=== PATIENT | female | born 1950 | race Caucasian/White ===

== ENCOUNTER 2017-06-08 07:50 | Day surgery (SDC) | payer MEDICARE ==
[~2017-06-08 07:50] MED LIST: Acetaminophen TAB* 325 MG PO PRN; Buffered Lidocaine 0.9% SYRIN* 5 ML/SYR SYRINGE INTRADERM ONE
[2017-06-08] MEDS ORDERED: Midazolam* 1 MG/ML 2 ML VIAL (2 MG) ONE ×2 (09:13→09:36)
[2017-06-08 10:04] VITALS: BP 143/62
[2017-06-08] MEDS ORDERED: Proparacaine 0.5% OPHTH.SOL* 15 ML BTL ONE (10:37)
[2017-06-08] MEDS ORDERED: Povidone Iodine 5% OPTH* 30 ML BTL ONE (10:37)
[2017-06-08] MEDS ORDERED: Cyclopentolate 1% OPTH.SOL* 2 ML BTL ONE (10:37)
[2017-06-08] MEDS ORDERED: Neomycin/Polymy/Dex OPTH.SUSP* MAXITROL 0.1% 5 ML ONE (10:37)
[2017-06-08] MEDS ORDERED: Phenylephrine 2.5% OPTH.SOL* 2 ML BTL ONE (10:37)
[2017-06-08] MEDS ORDERED: Ketorolac 0.5% OPHTH (NF) 0.5 % 5 ML BTL ONE (10:37)
[2017-06-08] MEDS ORDERED: Lidocaine 2% EPI 1:200000 MPF* 20 ML VIAL ONE (10:37)
[2017-06-08] MEDS ORDERED: Lidocaine 1% MPF* 2 ML VIAL ONE (10:37)
--- NOTE | 2017-06-08 11:31 | OP ---
DATE OF OPERATION: 06/08/2017 - [facility] DATE OF : 1950. SURGEON: Lobo Haines M.D. PREOPERATIVE DIAGNOSIS: Cataract left eye. POSTOPERATIVE DIAGNOSIS: Cataract left eye. OPERATIVE PROCEDURE: Extracapsular cataract extraction with intraocular lens implant left eye. DESCRIPTION OF PROCEDURE: The patient was brought to the operating room after being given 1/2% Alcaine with epinephrine drops in the preoperative area. The eye was prepped and draped in the usual sterile fashion. Sterile drape and eyelid speculum were placed. Again, topical 1/2% Alcaine with epinephrine was given. A paracentesis incision was made at the 3 o'clock position with the No.75 blade. Clear cornea incision 2.2 x 2.2-mm was created at the 6 o'clock position starting at the anterior limbus using the 2.2-mm keratome. The anterior chamber was irrigated with 0.4 mL of 1% non-preservative intracameral lidocaine and filled with DisCoVisc. A capsulorrhexis was completed using the cystotome and the Utrata forceps. Hydrodissection was performed with balanced salt solution. The lens nucleus was removed with the Phacoemulsification handpiece without incident. Cortex was removed with the irrigation-aspiration handpiece. The capsular bag was re-inflated using DisCoVisc and an [id number] 18.5 implant was inserted with the shooter. The irrigation-aspiration handpiece was used to remove all residual DisCoVisc. The eye was refilled with balanced salt solution and the wound checked and found to be watertight. Topical Maxitrol drops were given. [id number]/[facility] #: [id number] [facility]
== END 2017-06-08 10:17 | disposition home or self-care (01) ==
LOC: OREAST 07:50
PROVIDERS: ATTEND Specialist
DX: H25.813 Combined forms of age-related cataract, bilateral (principal); H40.053 Ocular hypertension, bilateral; H16.223 Keratoconjunctivitis sicca, not specified as Sjogren's, bilateral; F41.9 Anxiety disorder, unspecified; Z88.2 Allergy status to sulfonamides
CPT/HCPCS: A9270-GY; J2250; V2632

== ENCOUNTER 2017-06-15 06:17 | Day surgery (SDC) | payer MEDICARE ==
[2017-06-15] MEDS ORDERED: Midazolam* 1 MG/ML 2 ML VIAL (2 MG) ONE ×2 (07:16→07:48)
[2017-06-15 08:14] VITALS: BP 136/63
[2017-06-15] MEDS ORDERED: Proparacaine 0.5% OPHTH.SOL* 15 ML BTL ONE (11:53)
[2017-06-15] MEDS ORDERED: acetaZOLAMIDE TAB* 250 MG ONE (11:53)
[2017-06-15] MEDS ORDERED: Lidocaine 2% EPI 1:200000 MPF* 20 ML VIAL ONE (11:53)
[2017-06-15] MEDS ORDERED: Phenylephrine 2.5% OPTH.SOL* 2 ML BTL ONE (11:53)
[2017-06-15] MEDS ORDERED: Cyclopentolate 1% OPTH.SOL* 2 ML BTL ONE (11:53)
[2017-06-15] MEDS ORDERED: Neomycin/Polymy/Dex OPTH.SUSP* MAXITROL 0.1% 5 ML ONE (11:53)
[2017-06-15] MEDS ORDERED: Lidocaine 1% MPF* 2 ML VIAL ONE (11:53)
[2017-06-15] MEDS ORDERED: Ketorolac 0.5% OPHTH (NF) 0.5 % 5 ML BTL ONE (11:53)
[2017-06-15] MEDS ORDERED: Povidone Iodine 5% OPTH* 30 ML BTL ONE (11:53)
--- NOTE | 2017-06-15 13:54 | OP ---
DATE OF OPERATION: 06/15/17 - [facility] DATE OF : 1950. SURGEON: Lobo Haines M.D. PREOPERATIVE DIAGNOSIS: Cataract right eye. POSTOPERATIVE DIAGNOSIS: Cataract right eye. OPERATIVE PROCEDURE: Extracapsular cataract extraction with intraocular lens implant right eye. DESCRIPTION OF PROCEDURE: The patient was brought to the operating room after being given 1/2% Alcaine with epinephrine drops in the preoperative area. The eye was prepped and draped in the usual sterile fashion. Sterile drape and eyelid speculum were placed. Again, topical 1/2% Alcaine with epinephrine was given. A paracentesis incision was made at the 9 o'clock position with the No.75 blade. Clear cornea incision 2.2 x 2.2-mm was created at the 12 o'clock position starting at the anterior limbus using the 2.2-mm keratome. The anterior chamber was irrigated with 0.4 mL of 1% non-preservative intracameral lidocaine and filled with DisCoVisc. A capsulorrhexis was completed using the cystotome and the Utrata forceps. Hydrodissection was performed with balanced salt solution. The lens nucleus was removed with the Phacoemulsification handpiece without incident. Cortex was removed with the irrigation-aspiration handpiece. The capsular bag was re-inflated using DisCoVisc and an [id number] 18 implant was inserted with the shooter. The irrigation-aspiration handpiece was used to remove all residual DisCoVisc. The eye was refilled with balanced salt solution and the wound checked and found to be watertight. Topical Maxitrol drops were given. [id number]/[facility] #: [id number] [facility]
== END 2017-06-15 08:20 | disposition home or self-care (01) ==
LOC: OREAST 06:17
PROVIDERS: ATTEND Specialist
DX: H25.811 Combined forms of age-related cataract, right eye (principal); H40.053 Ocular hypertension, bilateral; H16.223 Keratoconjunctivitis sicca, not specified as Sjogren's, bilateral; Z87.891 Personal history of nicotine dependence; F41.9 Anxiety disorder, unspecified
CPT/HCPCS: A9270-GY; J2250; V2632

== ENCOUNTER 2017-08-27 18:26 | Emergency (ER) | payer MEDICARE ==
[2017-08-27] MEDS ORDERED: Lidocaine 1% INJ* 10 MG/ML 30 ML SDV INJ ONE (19:17)
[2017-08-27] MEDS ORDERED: Tetan/Diph/Pertus SYR(Tdap)* 0.5 ML SYR(BOOSTRIX) use SYR IM ONE (19:22)
[2017-08-27] MEDS ORDERED: Amoxicillin/Clavulanate TAB* 875 MG PO ONE (19:22)
--- NOTE | 2017-08-27 19:47 | ED ---
Bite Injury/Animal - HPI Summary HPI Summary: 67-year-old female presents with laceration to the left forearm today. She states that she was going [id number] to houses and she was knocking on the door when a dog came around the back. She states the dog came up to her and bit her left forearm. She has full range of motion of her forearm. No numbness or tingling. She is unsure whether last tetanus. dog is up to date on rabies. She denies any other injury. She is not diabetic. - History of Current Complaint Chief Complaint: EDAnimalBite Stated Complaint: DOG BITE Time Seen by Provider: 08/27/17 18:37 Pain Intensity: 4 - Allergies/Home Medications Allergies/Adverse Reactions: Allergies Allergy/AdvReac Type Severity Reaction Status Date / Time Sulfa (Sulfonamide Allergy Intermediate Rash Verified 06/15/17 06:33 Antibiotics) PERFUMES AND FRAGRANCES Allergy Severe COUGH, Uncoded 06/15/17 06:33 EYES BURNING, TUNNEL VISION PMH/Surg Hx/FS Hx/Imm Hx Endocrine/Hematology History: Denies: Hx Anticoagulant Therapy Cardiovascular History: Denies: Hx Myocardial Infarction GI History: Reports: Other GI Disorders - diverticulosis Musculoskeletal History: Reports: Hx Arthritis - mild, Hx Scoliosis Denies: Hx Osteoporosis Sensory History: Reports: Hx Cataracts - both, Hx Contacts or Glasses - glasses , Hx Hearing Aid - both ears Opthamlomology History: Reports: Hx Cataracts - both, Hx Contacts or Glasses - glasses Psychiatric History: Reports: Hx Anxiety, Hx Depression - MILD IN PAST Denies: Hx Eating Disorder, Hx of Violent Episodes Against Others - Surgical History Surgery Procedure, Year, and Place: COCCYXectomy REMOVED. tonsillectomy as a kid. appendectomy Hx Anesthesia Reactions: No - Immunization History Date of Tetanus Vaccine: unk Infectious Disease History: No Infectious Disease History: Denies: Traveled Outside the [place] in Last 30 Days - Family History Known Family History: Positive: Hypertension - Social History Alcohol Use: Weekly Substance Use Type: Reports: None Smoking Status (MU): Former Smoker Amount Used/How Often: smoked off and on 5 years 1/2 ppd Review of Systems Negative: Fever Negative: Chest Pain Negative: Shortness Of Breath Positive: Other - laceration left forearm All Other Systems Reviewed And Are Negative: Yes Physical Exam Triage Information Reviewed: Yes Vital Signs On Initial Exam: Initial Vitals Temp Pulse Resp BP Pulse Ox 99.4 F 101 16 139/84 97 08/27/17 18:27 08/27/17 18:27 08/27/17 18:27 08/27/17 18:27 08/27/17 18:27 Vital Signs Reviewed: Yes Appearance: Positive: Well-Appearing Skin: Positive: Warm, Dry, Other - 2cm by 1/2cm left forearm laceration, 2 1/ 2cm superfical laceratins Head/Face: Positive: Normal Head/Face Inspection Eyes: Positive: Normal, Conjunctiva Clear Respiratory/Lung Sounds: Positive: Clear to Auscultation, Breath Sounds Present Cardiovascular: Positive: Normal, RRR Musculoskeletal: Positive: Strength/ROM Intact - left arm, Other - good pulses, capillary refill<2 secs Neurological: Positive: Normal Psychiatric: Positive: Normal Procedures - Laceration/Wound Repair 1 Location: Other - left forearm Description: Linear Anesthesia: Local, 1.0% Length, Depth and Shape: 2cm by 1/2cm Irrigated w/ Saline (ccs): 300 Laceration/Wound Explored: no foreign body removed Closure: Single Layer Suture Type: Prolene Number of Sutures: 2 Diagnostics - Vital Signs Vital Signs Temp Pulse Resp BP Pulse Ox 08/27/17 18:27 99.4 F 101 16 139/84 97 - Laboratory Lab Statement: Any lab studies that have been ordered have been reviewed, and results considered in the medical decision making process. Bite Injury Course/Dx - Course Course Of Treatment: 67-year-old female presents with laceration to the left forearm today. She states that she was going smsh-fk-ayvu to houses and she was knocking on the door when a dog came around the back. She states the dog came up to her and bit her left forearm. She has full range of motion of her forearm. No numbness or tingling. She is unsure whether last tetanus. dog is up to date on rabies. She denies any other injury. She is not diabetic. on exam has 2 cm by half centimeter laceration of left forearm. has 2 1/2cm superficial lacerations near main laceration. cleaned area extensively and placed to sutures. Place on Augmentin. Warned of signs of infection and return to ED. Patient understands agrees plan. - Diagnoses Differential Diagnosis/HQI/PQRI: Positive: Crush Injury, Laceration, Puncture Provider Diagnosis: Dog bite Discharge - Sign-Out/Discharge Documenting (check all that apply): Discharge/Admit/Transfer - Discharge Plan Condition: Good Disposition: HOME Prescriptions: Amoxicillin/Clavulanate TAB* [Augmentin TAB 875*] 875 mg PO BID #9 tab Patient Education Materials: Animal Bite (ED) Referrals: Richar Velasco, COLLECTIONS AND ARCHIVES DIRECTOR [Primary Care Provider] - Additional Instructions: Wash area with soap and water twice a day Place Neosporin on area Take augmentin twice a day for 5 days Return to ED if develop any sign of infection such as spreading redness, pus, or fever, or any new or worsening symptoms - Billing Disposition and Condition Condition: GOOD Disposition: Home
[2017-08-27 20:22] VITALS: BP 156/80
== END 2017-08-27 20:21 | disposition home or self-care (01) ==
LOC: ED 18:26
DX: S51.852A Open bite of left forearm, initial encounter (principal); W54.0XXA Bitten by dog, initial encounter; Y92.9 Unspecified place or not applicable; Z23 Encounter for immunization; Z87.891 Personal history of nicotine dependence; Z88.2 Allergy status to sulfonamides
CPT/HCPCS: 12001; 90471; 90715; 99282; A9270-GY

== ENCOUNTER 2018-08-01 19:59 | Emergency (ER) | payer MEDICARE ==
[2018-08-01] MEDS ORDERED: Ketorolac INJ* 30 MG/ML 1 ML VIAL IV PUSH ONE (20:41)
[2018-08-01] MEDS ORDERED: Metoclopramide IV* 5 MG/ML 2 ML VIAL IV ONE (20:41)
[2018-08-01] MEDS ORDERED: diPHENhydraMINE IV* 50 MG/ML 1 ml VIAL (BENADRYL) IV ONE (20:41)
[2018-08-01] MEDS ORDERED: NS 0.9% 1000 ML** 1,000 ML IV ONE (20:41)
--- OUTSIDE RECORDS SUMMARY | 2018-08-01 20:53 | XMS REPORT | Continuity of Care Document ---
:1950 External Reference #:[id number] Author Name Lobo Haines M.D. Address [address] [place] [address] Care Team Providers Name Role Phone Richar Velasco Primary Care Physician Unavailable Payers Date Identification Numbers Payment Provider Subscriber Policy Number: [id number] Medicare - [facility] Mona Gonzales PayID: [id number] [address] [place] [address] Policy Number: [id number] [facility] Mona Gonzales PayID: [id number] [address] [place] [address] Advance Directives Description No Information Available Problems Active Problems Provider Date H/O: multiple allergies Lobo Haines M.D. Onset: 07/15/2014 Note: ALLERGIC TO CHEMICALS, SUCH PURFUMES AND DETERGENTS Combined form of senile cataract Lobo Haines M.D. Onset: 04/11/2015 Keratoconjunctivitis sicca, not specified Lobo Haines M.D. Onset: 2015 as Sjogren's Blepharitis Kevin Sousa M.D. Onset: 07/08/2016 Ocular hypertension Lobo Haines M.D. Onset: 04/14/2017 Viral conjunctivitis Kevin Sousa M.D. Onset: 06/02/2017 Presence of intraocular lens Ngozi Godfrey O.D. Onset: 06/08/2017 Pain in eye Ngozi Godfrey O.D. Onset: 06/20/2017 Tear film insufficiency Ngozi Godfrey O.D. Onset: 06/20/2017 Superficial punctate keratitis Ashley Rodriguez O.D. Onset: 06/29/2017 Squamous blepharitis Ashley Rodriguez O.D. Onset: 06/29/2017 Angular blepharoconjunctivitis Ngozi Godfrey O.D. Onset: 09/30/2017 Chalazion Ngozi Godfrey O.D. Onset: 09/30/2017 Vitreous degeneration Kevin Sousa M.D. Onset: 01/24/2018 Migraine with typical aura Kevin Sousa M.D. Onset: 01/24/2018 Hypercholesterolemia Lobo Haines M.D. Onset: 07/24/2018 Retinal drusen Lobo Haines M.D. 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 ETOH Use Denies alcohol use Recreational Drug Use Never Used Drugs Tobacco Use Start: Unknown End: Unknown Patient is a former smoker Smoking Status Reviewed: 07/24/18 Patient is a former smoker Allergies, Adverse Reactions, Alerts Active Allergies Reaction Severity Comments Date Sulfa Antibiotics Contact dermatitis 07/15/2014 Medications Active Medications SIG Qnty Indications Ordering Provider Date Erythromycin Apply to all four 1Tube H01.021 Lobo Haines, 07/24/2018 5mg/GM lids at bedtime M.DNilsa Ointment for 3 weeks Ocusoft Lid Scrub as needed Lobo Haines, 07/23/2018 Original Gregory Liquid Refresh Optive Leland-3 [id number] Ashley Rodriguez, 07/04/2017 O.D. 0.5-1-0.5% Solution Jose Mag Zinc +D3 1 tablet 1 time Unknown +D3 per day Tablets Centrum Silver 1 tablet per day Unknown Tablets Atorvastatin Calcium take 1 tablet by Unknown 20mg mouth at bedtime Tablets Ranitidine HCL take 1 tablet by Unknown 150mg mouth twice a day Tablets if needed Fluticasone Propionate Unknown 50mcg/Act Suspension Eye Wash as Needed Unknown Solution Xanax as needed Unknown 0.25mg Tablets Fish Oil 1 by mouth every Unknown 1000mg Capsules day History Medications Erythromycin apply thin 1Tube H10.523 Ngozi Vogel 09/30/2017 - 5mg/GM strip to all [place], O.D. 01/23/2018 Ointment four eyelid margins x every night for 2 weeks FML Forte 1 drop in both 15ml H04.123 Lobo Haines, 07/15/2017 - 0.25% eyes twice a M.D. 07/20/2017 Suspension day Xiidra use 1 drop 180units H04.123 Ashley Rodriguez, 07/06/2017 - 5% Solution twice a day O.D. 07/14/2017 both eyes Ciprofloxacin HCL instill one 10units Ngozi Vogel 06/20/2017 - 0.3% drop in the [place], O.D. 06/19/2017 Solution right eye three times a day, start the day before surgery Combigan 1 drop right 15ml Lobo Haines, 06/08/2017 - 0.2-0.5% eye twice a M.D. 06/19/2017 Solution day Prednisolone Acetate 1 drop left 15units Lobo Haines, 05/20/2017 - 1% eye 3 times a M.D. 07/14/2017 Suspension day Ketorolac use one drop 10ml Lobo Haines, 05/20/2017 - Tromethamine in the left M.D. 06/28/2017 0.5% eye twice a Solution day,1 drop three times day, start the day before surgery Ciprofloxacin HCL instill one 10ml Lobo Haines, 05/20/2017 - 0.3% drop in the M.D. 06/19/2017 Solution right eye three times a day, start the day before surgery Neomycin/Polymyxin/De apply one drop 10ml H01.001 Kevin 07/08/2016 - xamethasone to each eye, Gregory Sousa 10/10/2016 0.1% Two times a Suspension day for 2 weeks Systane 1 drop left Lobo Haines, 10/09/2015 - 0.4-0.3% eye every 2 M.D. 06/21/2017 Solution hours Multi-Day Vitamins Unknown - 04/13/2017 Tablets Famotidine Cannariato, - 20mg Tablets Rosi M.D. 04/13/2017 Calcium 1200 Unknown - 05/19/2017 [id number]-Yoze Chewtabs Citracal +D3 Unknown - 09/07/2017 622-639-327ys-mg-Unit Chewtabs Multi For Her Unknown - Capsules 05/31/2018 Fluticasone Unknown - Propionate 07/14/2017 50mcg/Act Suspension Soothe XP 1 drop both Unknown - Solution eyes every day 07/14/2017 as needed Refresh Celluvisc Gel as needed up Lobo Haines, - to every 20-30 M.D. 05/10/2018 minutes Similasan Dry Eye as needed - 2 Unknown - Relief times daily 07/20/2017 Solution Tylenol 2 at bedtime Unknown - 325mg Capsules 07/05/2018 Azithromycin take 1 tablet Unknown - 500mg by mouth once 02/01/2018 Tablets daily for 5 days Tylenol Sinus Severe prn Unknown - 05/09/2018 5-325-200mg Tablets Immunizations Description No Information Available Vital Signs Description No Information Available Results Description No Information Available Procedures Date Code Description Status 02/14/2018 80013 Est Patient Intermediate Exam Completed 01/24/2018 99991 Est Patient Comprehensive Exam Completed 09/30/2017 04061 Est Patient Intermediate Exam Completed 07/21/2017 14429 Scanning Computerized Ophthalmic Diagnostic Imag Posterior Completed Seg On 07/21/2017 23657 Visual Field Exam Extended Completed 07/21/2017 510 Eye Scrubs 30 Count Completed 07/05/2017 94508 Contact Lens For Treatment Of Ocular Surface Disease Completed 06/15/2017 18735 Extracapsular Cataract Extraction W/Intraocular Lens Completed 06/08/2017 64071 Extracapsular Cataract Extraction W/Intraocular Lens Completed 05/20/2017 11785 Ophthalmic Biometry Completed 05/20/2017 32842 Ophthalmic Biometry Completed 04/14/2017 81920 Est Patient Comprehensive Exam Completed 10/11/2016 22869 Est Patient Comprehensive Exam Completed 07/08/2016 02414 Est Patient Comprehensive Exam Completed 10/10/2015 81274 Est Patient Intermediate Exam Completed 04/11/2015 27933 Est Patient Intermediate Exam Completed 03/07/2015 71667 Patient No Show For Appt Completed 07/15/2014 36243 Determination Of Refractive State Completed 07/15/2014 55553 Est Patient Comprehensive Exam Completed 12/24/2013 78987 Determination Of Refractive State Completed 12/24/2013 17759 Est Patient Intermediate Exam Completed 11/08/2013 64685 Est Patient Comprehensive Exam Completed 10/22/2013 94393 Patient No Show For Appt Completed 10/19/2012 97947 Est Patient Intermediate Exam Completed 06/05/2012 36654 Est Patient Comprehensive Exam Completed 06/05/2012 71067 Determination Of Refractive State Completed 05/08/2012 523 Goggles Completed 05/02/2012 24780 Est Patient Comprehensive Exam Completed 05/02/2012 605 Cleaning Cloth Completed 05/02/2012 603 Eyeglass/CL Case Completed 05/13/2011 27896 Est Patient Intermediate Exam Completed 05/03/2011 83250 New Patient Comprehensive Exam Completed 05/03/2011 47952 Pachymetry Completed Encounters Type Date Location Provider Dx Diagnosis Office Visit 07/21/2017 Lobo Ladd, H40.053 Ocular 11:15a , susan Jenkins hypertension, bilateral H04.123 Dry eye syndrome of bilateral lacrimal glands Z96.1 Presence of intraocular lens Office Visit 07/07/2017 7:15p Lobo Rodriguez, H16.142 Punctate MD Zaki, susan O.D. keratitis, left eye H04.123 Dry eye syndrome of bilateral lacrimal glands Office Visit 06/29/2017 9:45a Lobo Rodriguez, H16.142 Justin Haines MD, susan O.D. keratitis, left eye H01.021 Squamous blepharitis right upper eyelid H01.024 Squamous blepharitis left upper eyelid Office Visit 06/02/2017 Lobo Brown B30.9 Viral conjunctivitis, 11:15a MD Zaki, Gregory Sousa unspecified pc Office Visit 05/20/2017 Lobo Vogel H25.812 Combined forms of 11:00a MD Zaki, Gregory Haines age-related cataract, pc left eye H25.811 Combined forms of age-related cataract, right eye H40.053 Ocular hypertension, bilateral H16.223 Keratoconjunct sicca, not specified as Sjogren's, bilateral Office Visit 05/08/2012 1:30p Richar Ladd 692.9 Dermatitis Unspec , susan Leung M.D. Cause Due To Spec Agents Other Plan of Treatment 07/24/2018 - Lobo Haines M.D.H40.053 Ocular hypertension, bilateralComments :Smoking can increase the risk of developing or worsening any eye related disease, as well as affect your overall health. If you are a smoker, we strongly recommend that you quit.If you are not a smoker, we strongly recommend that you do not start. You have Ocular Hypertension in both eyes. This means that your eye pressure is higher than average, but you have not been diagnosed with Glaucoma.H01.021 Squamous blepharitis right upper eyelidNew Medication: Erythromycin 5 mg/GM - Apply to all four lids at bedtime for 3 weeksComments: Dr. Haines has diagnosed you with Blepharitis. This is common condition and can be managed with a few simple steps each day. -Use a hot compress 1-2 times per day, 10-15 minutes at a time, to help melt down the oils in your eyelids that have hardened. Each time you blink, the glands in the lids are supposed to release a protective oil layer over your tears to help them from evaporating. It is common with Blepharitis that the natural bacteria produced overgrows and hardens in the glands, which does not allow a protective oil layer to coat your tears.-Use artificial tear drops frequently throughout the day. Because the tear film is evaporating quicker than normal, you will need to supplement with tear drops to keep the ocular surface comfortable. -Use a lid scrub to remove debris from the lashes. [employer] is a brand we recommend to use.-Examine your environment. The weather for the area we live in often goes from one extreme to the other, forcing us to use air conditioners and heaters often. This can dry the air in the house out, so sometimes using a humidifier can help your ocular surface as well.H01.022 Squamous blepharitis right lower yvdmauG36.024 Squamous blepharitis left upper oimgkgN08.025 Squamous blepharitis left lower hxsvwgC06.1 Presence of intraocular lensComments:The artificial lens implants in both eyes appear to be stable at this time.H35.363 Drusen (degenerative) of macula, bilateralFollow up:1 Year Follow Up Photos You can expect to have your eyes dilated at your next visit. If Dr. Haines orders any additional testing, it may require extra time. We recommend that you bring sunglasses, as dilation drops often make you light sensitive until they wear off. We always recommend you bring someone to drive you home if you are uncomfortable driving with your eyes dilated. If you have any questions before your next visit, feel free to call our office at .
--- OUTSIDE RECORDS SUMMARY | 2018-08-01 20:53 | XMS REPORT | Continuity of Care Document ---
:1950 External Reference #:[id number] Author Name RobTracie sandy Care Team Providers Name Role Phone Ny Wagoner MD Primary Care Physician Unavailable Payers Date Identification Numbers Payment Provider Subscriber Policy Number: [id number] Medicare Shannon Garcia PayID: [id number] [address] [facility] [address] Expires: 2017 Policy Number: [id number] Medicare Shannon Serranoff PayID: [id number] [address] [facility] [address] Policy Number: [id number] [facility] Shannon Garcia PayID: [id number] [address] [place] [address] Expires: 2016 Policy Number: [id number] [facility] Shannon Garcia PayID: [id number] [address] [place] [address] Advance Directives Type Date Description Status Comment Other Directive 12/24/2016 Health Care Proxy Current and Verified Problems Active Problems Provider Date Anxiety state Richar Velasco NP Onset: 06/02/2016 Sprain of ankle Lele Renee MD Onset: 03/30/2017 Disorder of joint of ankle and/or foot Lele Renee MD Onset: 03/30/2017 Family History Date Family Member(s) Observation Comments Father Lung Cancer at 59 Father Heart Disease Mother Colon Cancer at 100 Siblings 3 1 lung cancer 1 current lung cancer-remission 1 obesity Social History Type Date Description Comments Sex Unknown Marital Status Lives With Spouse Occupation [employer] Occupation Retired ETOH Use Currently consumes 5 drinks/week alcohol Tobacco Use Start: Unknown End: Patient is a former 10 cigarettes daily Unknown smoker for 5 yrs, then for a few months during divorce. Quit in her 40s Smoking Status Reviewed: 07/12/18 Patient is a former 10 cigarettes daily smoker for 5 yrs, then for a few months during divorce. Quit in her 40s Exercise Exercises sporadically Type/Frequency Allergies, Adverse Reactions, Alerts Active Allergies Reaction Severity Comments Date Sulfa Antibiotics Urticaria 05/31/2016 Medications Active Medications SIG Qnty Indications Ordering Provider Date Ranitidine HCL take 1 tablet by 60tabs K21.9 Richar Velasco NP 07/12/2018 150mg mouth twice a Tablets day if needed Fluticasone 2 sprays each 16units J01.90 Richar Velasco NP 12/05/2017 Propionate nostril qd. 50mcg/Act Suspension Azelastine HCL 1 spray in each 30ml Steffen DNilsa 10/21/2017 (Nasal) nostril 2x/day. Gregory De,FACP 0.1% Solution Alprazolam one by mouth 30tabs F41.9 Richar Velasco NP 05/31/2016 0.25mg once daily as Tablets needed Citrucel 1 by mouth every Unknown 500mg Tablets day Multi For Her once a day Unknown Tablets History Medications Levofloxacin one by mouth 10tabs J01.90 Richar Velasco NP 12/05/2017 - 500mg daily for 10 12/15/2017 Tablets days Flagyl Take one tablet 21tabs R10.32 Laurel Rosas, 11/25/2017 - 500mg Tablets by mouth three M.D. 12/05/2017 times daily for 7 days. Hydroxyzine Pamoate 1-2 caps QHS as 60caps G47.00 Richar Velasco NP 2017 - needed. 10/21/2017 25mg Capsules Tylenol Extra 2 by mouth as Ganesh Phelps, 11/29/2016 - Strength needed M.D. 03/29/2017 500mg Tablets Fluticasone 2 sprays each 16gm R05 Kaushik Doe, 10/29/2016 - Propionate nostril qd. M.D. 03/29/2017 50mcg/Act Suspension Naprosyn Unknown - 375mg Tablets 03/29/2017 Amoxicillin/Clavulana 1 by mouth Unknown - te Potassium twice a day for 09/19/2017 875-125mg 5 days Tablets Benzonatate one by mouth Unknown - 200mg three times 10/25/2017 Capsules daily for 7 days Amoxicillin/Clavulana 1 by mouth Unknown - te Potassium twice a day 02/21/2018 875-125mg Tablets Xyzal 1 by mouth Unknown - 5mg Tablets every day 04/26/2018 Medications Administered in Office Medication SIG Qnty Indications Ordering Provider Date Depomedrol 40MG Emiliana Cifuentes M.D. 04/19/2018 Injection Depomedrol 40MG Emiliana Cifuentes M.D. 12/15/2017 Injection Immunizations CPT Code Status Date Vaccine Reaction Lot # 40869 Given 07/12/2018 Pneumonia Vaccine No reaction seen - no [id number] immediate side effects - patient tolerated well 10247 Given 12/22/2016 Pneumococcal Conjugate [id number] Vaccine 13 Valent For Intramuscular Use 16633 Given 06/20/2015 Tdap - Tetanus/Diptheria/Acellular Pertussis Vital Signs Date Vital Result Comment 07/12/2018 11:09am Height 67 inches 5'7" Weight 181.00 lb Heart Rate 64 /min BP Systolic 140 mmHg BP Diastolic 80 mmHg Body Temperature 97.6 F O2 % BldC Oximetry 98 % BMI (Body Mass Index) 28.3 kg/m2 06/22/2018 2:16pm Height 67.75 inches 5'7.75" Weight 179.12 lb Heart Rate 64 /min BP Systolic 136 mmHg BP Diastolic 75 mmHg Body Temperature 97.9 F O2 % BldC Oximetry 98 % BMI (Body Mass Index) 27.4 kg/m2 05/31/2018 10:12am Height 67.75 inches 5'7.75" Weight 178.00 lb BP Systolic 120 mmHg BP Diastolic 74 mmHg Pain Level 1 BMI (Body Mass Index) 27.3 kg/m2 04/27/2018 1:46pm Height 67.75 inches 5'7.75" Weight 178.75 lb Heart Rate 56 /min BP Systolic 131 mmHg BP Diastolic 66 mmHg Body Temperature 98.0 F O2 % BldC Oximetry 96 % BMI (Body Mass Index) 27.4 kg/m2 04/19/2018 9:31am Height 67.75 inches 5'7.75" Heart Rate 78 /min BP Systolic 128 mmHg BP Diastolic 80 mmHg Respiratory Rate 18 /min Body Temperature 97.9 F Pain Level 8 02/22/2018 9:12am Height 67.75 inches 5'7.75" Weight 180.00 lb BP Systolic 136 mmHg BP Diastolic 82 mmHg Respiratory Rate 16 /min Body Temperature 98.0 F Pain Level 3 BMI (Body Mass Index) 27.6 kg/m2 01/25/2018 10:18am Height 67.75 inches 5'7.75" Weight 180.00 lb Heart Rate 73 /min BP Systolic 127 mmHg BP Diastolic 79 mmHg Respiratory Rate 16 /min BMI (Body Mass Index) 27.6 kg/m2 01/24/2018 8:57am Height 67.5 inches 5'7.50" Weight 179.25 lb Heart Rate 69 /min BP Systolic 136 mmHg BP Diastolic 76 mmHg Body Temperature 99.1 F O2 % BldC Oximetry 95 % BMI (Body Mass Index) 27.7 kg/m2 12/15/2017 2:35pm Height 67.5 inches 5'7.50" Weight 177.00 lb Heart Rate 68 /min BP Systolic 124 mmHg BP Diastolic 70 mmHg Respiratory Rate 12 /min Body Temperature 98.1 F Pain Level 7 BMI (Body Mass Index) 27.3 kg/m2 12/05/2017 4:33pm Height 67.25 inches 5'7.25" Weight 178.00 lb Heart Rate 63 /min BP Systolic 122 mmHg BP Diastolic 78 mmHg Body Temperature 98.6 F O2 % BldC Oximetry 96 % BMI (Body Mass Index) 27.7 kg/m2 11/25/2017 10:19am Height 67.25 inches 5'7.25" Weight 176.00 lb Heart Rate 62 /min BP Systolic Sitting 110 mmHg BP Diastolic Sitting 60 mmHg Respiratory Rate 18 /min O2 % BldC Oximetry 96 % on Ra BMI (Body Mass Index) 27.4 kg/m2 11/16/2017 10:31am Height 67.25 inches 5'7.25" Weight 178.50 lb Heart Rate 66 /min BP Systolic 122 mmHg BP Diastolic 78 mmHg Respiratory Rate 16 /min Body Temperature 98.6 F Pain Level 6 BMI (Body Mass Index) 27.7 kg/m2 10/21/2017 3:03pm Height 67.25 inches 5'7.25" Weight 176.00 lb Heart Rate 81 /min BP Systolic 132 mmHg BP Diastolic 70 mmHg Body Temperature 97.9 F O2 % BldC Oximetry 96 % BMI (Body Mass Index) 27.4 kg/m2 10/03/2017 2:19pm Height 67.25 inches 5'7.25" Weight 180.00 lb Heart Rate 74 /min BP Systolic 118 mmHg BP Diastolic 70 mmHg Body Temperature 97.4 F O2 % BldC Oximetry 95 % BMI (Body Mass Index) 28.0 kg/m2 09/19/2017 2:07pm Height 67.25 inches 5'7.25" Weight 178.50 lb Heart Rate 76 /min BP Systolic 118 mmHg BP Diastolic 66 mmHg O2 % BldC Oximetry 98 % BMI (Body Mass Index) 27.7 kg/m2 09/05/2017 8:30am Weight 179.00 lb Heart Rate 74 /min BP Systolic Sitting 134 mmHg BP Diastolic Sitting 79 mmHg O2 % BldC Oximetry 98 % 09/01/2017 3:15pm Height 67.5 inches 5'7.50" Weight 177.25 lb Heart Rate 65 /min BP Systolic 131 mmHg BP Diastolic 67 mmHg Body Temperature 98.9 F O2 % BldC Oximetry 99 % BMI (Body Mass Index) 27.3 kg/m2 05/18/2017 10:17am Weight 178.00 lb Heart Rate 56 /min BP Systolic Sitting 125 mmHg BP Diastolic Sitting 80 mmHg Body Temperature 97.9 F O2 % BldC Oximetry 98 % 04/26/2017 1:37pm Height 68 inches 5'8" Weight 176.00 lb BP Systolic 126 mmHg BP Diastolic 76 mmHg Respiratory Rate 16 /min Body Temperature 97.2 F Pain Level 0 BMI (Body Mass Index) 26.8 kg/m2 03/30/2017 1:39pm Height 68 inches 5'8" Weight 176.00 lb Heart Rate 76 /min BP Systolic 138 mmHg BP Diastolic 84 mmHg Pain Level 3 BMI (Body Mass Index) 26.8 kg/m2 02/02/2017 2:07pm Height 68 inches 5'8" Weight 178.00 lb Heart Rate 68 /min BP Systolic Sitting 146 mmHg BP Diastolic Sitting 88 mmHg Body Temperature 98.4 F O2 % BldC Oximetry 97 % BMI (Body Mass Index) 27.1 kg/m2 01/12/2017 8:37am Height 68 inches 5'8" Weight 173.25 lb Heart Rate 69 /min BP Systolic 120 mmHg BP Diastolic 80 mmHg Body Temperature 97.4 F Pain Level 97 BMI (Body Mass Index) 26.3 kg/m2 12/22/2016 11:17am Height 68 inches 5'8" Weight 173.00 lb Heart Rate 65 /min BP Systolic Sitting 138 mmHg BP Diastolic Sitting 82 mmHg Body Temperature 98.5 F O2 % BldC Oximetry 98 % BMI (Body Mass Index) 26.3 kg/m2 11/29/2016 4:37pm Height 68 inches 5'8" Weight 179.38 lb Heart Rate 67 /min BP Systolic Sitting 122 mmHg BP Diastolic Sitting 86 mmHg Body Temperature 99.2 F O2 % BldC Oximetry 97 % BMI (Body Mass Index) 27.3 kg/m2 10/29/2016 4:24pm Height 68 inches 5'8" Weight 179.00 lb Heart Rate 75 /min BP Systolic 130 mmHg BP Diastolic 78 mmHg Body Temperature 98.4 F O2 % BldC Oximetry 99 % BMI (Body Mass Index) 27.2 kg/m2 06/07/2016 8:37am Weight 177.00 lb with shoes Heart Rate 69 /min BP Systolic 130 mmHg BP Diastolic 80 mmHg O2 % BldC Oximetry 98 % 05/31/2016 1:02pm Height 67 inches 5'7" Weight 174.00 lb Heart Rate 66 /min BP Systolic 110 mmHg BP Diastolic 80 mmHg O2 % BldC Oximetry 99 % BMI (Body Mass Index) 27.2 kg/m2 Results Test Date Facility Test Result H/L Range Note Lipid Profile 07/12/2018 [facility] Triglycerides 213 mg/dL 1 (Trig/Chol/HDL) [address] [place] [address] [phone] Cholesterol 270 mg/dL 2 HDL Cholesterol 65.7 mg/dL 3 LDL Cholesterol 162 mg/dL 4 Laboratory test 07/12/2018 [facility] Glucose 96 mg/dL N 70- [address] [place] [address] [phone] CBC Auto Diff 10/22/2017 [facility] White Blood 4.3 10^3/uL N 3.5-10.[address] [place] [address] [phone] Red Blood Count 4.48 10^6/uL N 4.00-5.40 Hemoglobin 13.3 g/dL N 12.0-16.0 Hematocrit 40 % N 35-47 Mean Corpuscular Volume 90 fL N 80-97 Mean Corpuscular Hemoglobin 30 pg N 27-31 Mean Corpuscular HGB Conc 33 g/dL N 31-36 Red Cell Distribution Width 14 % N 10.5-15 Platelet Count 285 10^3/uL N 150-450 Mean Platelet Volume 8.2 um3 N 7.4-10.4 Abs Neutrophils 1.9 10^3/uL N 1.5-7.7 Abs Lymphocytes 1.7 10^3/uL N 1.0-4.8 Abs Monocytes 0.3 10^3/uL N 0-0.8 Abs Eosinophils 0.3 10^3/uL N 0-0.6 Abs Basophils 0.1 10^3/uL N 0-0.2 Abs Nucleated RBC 0 10^3/uL Granulocyte % 45.1 % N 38-83 Lymphocyte % 39.1 % N 25-47 Monocyte % 7.8 % High 0-7 Eosinophil % 6.7 % High 0-6 Basophil % 1.3 % N 0-2 Nucleated Red Blood Cells % 0.1 Comp Metabolic Panel 10/22/2017 [facility] Sodium 139 mmol/L N 135-145 [address] [place] [address] [phone] Potassium 4.1 mmol/L N 3.5-5.0 Chloride 104 mmol/L N 101-111 Co2 Carbon Dioxide 28 mmol/L N 22-32 Anion Gap 7 mmol/L N 2-11 Glucose 110 mg/dL High 70-100 Blood Urea Nitrogen 12 mg/dL N 6-24 Creatinine 0.95 mg/dL N 0.51-0.95 BUN/Creatinine Ratio 12.6 N 8-20 Calcium 10.3 mg/dL N 8.6-10.3 Total Protein 6.8 g/dL N 6.4-8.9 Albumin 4.5 g/dL N 3.2-5.2 Globulin 2.3 g/dL N 2-4 Albumin/Globulin Ratio 2.0 N 1-3 Total Bilirubin 0.70 mg/dL N 0.2-1.0 Alkaline Phosphatase 76 U/L N 34-104 Alt 31 U/L N 7-52 Ast 29 U/L N 13-39 Egfr Non- 58.7 >60 Egfr 71.0 >60 6 Laboratory test 10/22/2017 [facility] C Reactive 9.17 mg/L High <8.[address] [place] [address] [phone] Ua Routine 10/21/2017 [facility] Ua Specific [address] Ua PH 8 Ua Color yellow Ua Appera clear Ua WBC trace Ua Protein negative Ua Glucose negative Ua Ketones negative Ua Bilirubin negative Ua Urobilinogen negative Ua Nitrite negative Ua Occult Blood trace Urine Culture And 10/21/2017 [facility] Urine Culture SEE RESULT [address] [place] [address] [phone] Wound Culture/Sensi 09/01/2017 [facility] Wound/Misc SEE RESULT [address] Culture[place] [address] [phone] Lipid Profile 12/23/2016 [facility] Triglycerides 150 mg/dL N 9 (Trig/Chol/HDL) [address] [place] [address] [phone] Cholesterol 247 mg/dL N 10 HDL Cholesterol 53.0 mg/dL N 11 LDL Cholesterol 164 mg/dL N 12 Basic Metabolic Panel 12/23/2016 [facility] Sodium 138 mmol/L N 133-[address] [place] [address] [phone] Potassium 4.3 mmol/L N 3.5-5.0 Chloride 106 mmol/L N 101-111 Co2 Carbon Dioxide 25 mmol/L N 22-32 Anion Gap 7 mmol/L N 2-11 Glucose 95 mg/dL N 70-100 Blood Urea Nitrogen 16 mg/dL N 6-24 Creatinine 0.88 mg/dL N 0.51-0.95 BUN/Creatinine Ratio 18.2 N 8-20 Calcium 10.0 mg/dL N 8.6-10.3 Egfr Non- 64.3 N >60 Egfr 82.7 N >60 13 Laboratory test 12/23/2016 [facility] Hepatitis C Nonreactive N Nonreactive finding [address] [place] [address] [phone] Urine Culture 12/23/2016 [facility] Urine SEE RESULT [address] Culture BELOW Sensitivities [place], [place] [address] [phone] Urinalysis 12/23/2016 [facility] Urine Color Yellow N Profile [address] [place] [address] [phone] Urine Appearance Cloudy N Urine Specific [place] 1.015 N 1.010-1.030 Urine pH 5.0 N 5-9 Urine Urobilinogen Negative N Negative Urine Ketones Negative N Negative Urine Protein Negative N Negative Urine Leukocytes Trace Abnormal Negative Urine Blood 1+ Abnormal Negative Urine Nitrite Negative N Negative Urine Bilirubin Negative N Negative Urine Glucose Negative N Negative Urine White Blood Cell Trace(0-5/hpf) N Absent Urine Red Blood Cell Trace(0-2/hpf) N Absent Urine Bacteria Absent N Absent CBC Auto Diff 12/23/2016 [facility] White Blood 4.9 10^3/uL N 3.5-10.[address] [place] [address] [phone] Red Blood Count 4.41 10^6/uL N 4.0-5.4 Hemoglobin 12.9 g/dL N 12.0-16.0 Hematocrit 39 % N 35-47 Mean Corpuscular Volume 89 fL N 80-97 Mean Corpuscular Hemoglobin 29 pg N 27-31 Mean Corpuscular HGB Conc 33 g/dL N 31-36 Red Cell Distribution Width 13 % N 10.5-15 Platelet Count 237 10^3/uL N 150-450 Mean Platelet Volume 8 um3 N 7.4-10.4 Abs Neutrophils 2.5 10^3/uL N 1.5-7.7 Abs Lymphocytes 1.7 10^3/uL N 1.0-4.8 Abs Monocytes 0.3 10^3/uL N 0-0.8 Abs Eosinophils 0.3 10^3/uL N 0-0.6 Abs Basophils 0 10^3/uL N 0-0.2 Abs Nucleated RBC 0 10^3/uL N Granulocyte % 51.6 % N 38-83 Lymphocyte % 35.8 % N 25-47 Monocyte % 5.9 % N 1-9 Eosinophil % 6.1 % High 0-6 Basophil % 0.6 % N 0-2 Nucleated Red Blood Cells % 0.1 N Laboratory test 06/07/2016 [facility] Cytology SEE RESULT BELOW [address] [place] [address] [phone] HPV Rna Ww/Reflex Genotype Negative N Negative 16 1 Desirable: <150 Borderline High: 150-199 High: 200-499 Very High: >500 2 Desirable: <200 Borderline High: 200-239 High: >239 3 Low: <40 Desirable: 40-60 High: >60 4 Desirable: <100 Near Optimal: 100-129 Borderline High: 130-159 High: 160-189 Very High: >189 5 Discussed results with patient by phone. 6 Because ethnic data is not always readily available, this report includes an eGFR for both -Americans and non- Americans. The National Kidney Disease Education Program (NKDEP) does not endorse the use of the MDRD equation for patients that are not between the ages of 18 and 70, are , have extremes of body size, muscle mass, or nutritional status, or are non- or non-. According to the National Kidney Foundation, irrespective of diagnosis, the stage of the disease is based on the level of kidney function: Stage Description GFR(mL/min/1.73 m(2)) 1 Kidney damage with normal or decreased GFR 90 2 Kidney damage with mild decrease in GFR 60-89 3 Moderate decrease in GFR 30-59 4 Severe decrease in GFR 15-29 5 Kidney failure <15 (or dialysis) 7 SEE RESULT BELOW Name: SHANNON GARCIA : [address]: Eulalia SPRAGUE Acct: [id number] Unit: [id number] AGE: 67 Location: [facility] Re10/21/17 SEX: F Status: REG REF SPEC: [id number] HEYDI: 10/21/17-15[address] [facility] DR: Eulalia SPRAGUE REQ: [id number] RECD: 10/21/17 STATUS: COMP _ S[facility] ORDERED: Urine Culture COMMENTS: [id number] Urine Source: Random Procedure Result Reported Site Urine Culture Final 10/23/17- 827 ML No Growth (<1,000 CFU/mL) * ML - Main Lab . END OF REPORT DEPARTMENT OF PATHOLOGY, [address] [place] [address] Rafy Suh M.D. Director [facility] # [id number] 8 SEE RESULT BELOW Name: SHANNON GARCIA : [address]: Richar Velasco WASTE DISPOSAL ATTENDANT Acct: [id number] Unit: [id number] AGE: 67 Location: [facility] Re09/01/17 SEX: F Status: REG REF SPEC: [id number] HEYDI: 09/01/[address]: Richar Velasco NP REQ: [id number] RECD: 09/01/17 STATUS: COMP _ SOURCE: ARM LEFT SPDESC: ORDERED: Culture Stain COMMENTS: [id number] Specimen Description LEFT FOREARM Procedure Result Reported Site Wound/Misc Gram Stain Final 09/01/17- 2019 ML 2+ Epithelial Cells 2+ Neutrophils No Organisms Seen Wound/Misc Culture Final 09/03/17- 1206 ML No Growth Day 2 * ML - Main Lab . END OF REPORT DEPARTMENT OF PATHOLOGY, [address] [place] [address] Rafy Suh M.D. Director [facility] # [id number] 9 Desirable <150 Borderline high 150-199 High 200-499 Very High >500 10 Desirable <200 Borderline high 200-239 High >239 11 Low <40 Desirable: 40-60 High: >60 12 Desirable: <100 mg/dL Near Optimal: 100-129 mg/dL Borderline High: 130-159 mg/dL High: 160-189 mg/dL Very High: >189 mg/dL 13 Because ethnic data is not always readily available, this report includes an eGFR for both -Americans and non- Americans. The National Kidney Disease Education Program (NKDEP) does not endorse the use of the MDRD equation for patients that are not between the ages of 18 and 70, are , have extremes of body size, muscle mass, or nutritional status, or are non- or non-. According to the National Kidney Foundation, irrespective of diagnosis, the stage of the disease is based on the level of kidney function: Stage Description GFR(mL/min/1.73 m(2)) 1 Kidney damage with normal or decreased GFR 90 2 Kidney damage with mild decrease in GFR 60-89 3 Moderate decrease in GFR 30-59 4 Severe decrease in GFR 15-29 5 Kidney failure <15 (or dialysis) 14 SEE RESULT BELOW Name: SHANNON GARCIA : [address]: Richar Velasco NP Acct: [id number] Unit: [id number] AGE: 66 Location: [facility] Re12/23/16 SEX: F Status: REG REF SPEC: [id number] HEYDI: 12/23/[address]: Ganesh Phelps III, MD REQ: [id number] RECD: 12/23/16 STATUS: COMP _ SOURCE: URINE SPDESC: ORDERED: Urine Culture Procedure Result Reported Site Urine Culture Final 12/24/16- 1312 ML No Growth (<1,000 CFU/mL) * ML - [facility] . END OF REPORT * ML=Testing performed at Main Lab DEPARTMENT OF PATHOLOGY, [address] [place] [address] Rafy Suh M.D. Director [facility] # [id number] 15 SEE RESULT BELOW Name: SHANNON GARCIA : [address]: Liat Man NP Acct: [id number] Unit: [id number] AGE: 65 Location: [facility] Re06/07/16 SEX: F Status: REG REF SPEC: [id number] HEYDI: 06/07/[address]: Liat Man NP REQ: [id number] RECD: 06/07/16 STATUS: SOUT _ ORDERED: IMAGE ANALYSIS, HPV/Thin Prep, HPV 16/18 GENE COMMENTS: [id number] FINAL DIAGNOSIS Negative for Intraepithelial lesion or Malignancy A. Ectocervical/Endocervical Specimen Adequacy: Satisfactory of evaluation Transformation zone component cannot be definitely identified due to presence of atrophy or other hormonal changes Patient Information: HPV: High risk HPV RNA testing regardless of pap results. HPV 16/18 Genotype Reflex Actual Specimen Date: 06/07/16 LMP If Unknown: age 50+/- Spec Date if unknown: unknown ?: N Post Menopausal?: Y Hysterectomy?: Y Previous Abnormal Pap Smears?:Y If Yes, enter Diagnosis: mild dysplasia, had cryotherapy at least 40 yrs ago all paps normal since. Date Time Test Result Flag (u) Normal Range 06/07/16 0907 HPV RNA RFLX GE Negative Negative The high-risk HPV types detected by the assay include: 16, 18, 31, 33, 35, 39, 45, 51, 52, 56, 58, 59, 66, and 68. Signed (signature on file) MARITZA Velazquez(ASCP) 06/08 1245 This Pap test was evaluated with the assistance of the [employer] Test Imaging System. Due to cytologic findings at the emissions testing and repair technician microscope, comprehensive manual rescreening by a Senior Ssis Developer may be required. The Pap Smear is a screening test designed to aid in the detection of premalignant and malignant conditions of the uterine cervix. It is not a diagnostic procedure and should not be used as the sole means of detecting cervical cancer. Both false- positive and false- negative reports do occur. Depending on your risk status, a Pap smear should be obtained and evaluated every 1-3 years. END OF REPORT RUN DATE: 06/08/16 [facility] LAB LIVE PAGE 1 Patient: JOSESHANNON [id number] (Continued) * ML=Testing performed at Main Lab DEPARTMENT OF PATHOLOGY, [address] [place] [address] Rafy Suh M.D. Director [facility] # [id number] 16 The high-risk HPV types detected by the assay include: 16, 18, 31, 33, 35, 39, 45, 51, 52, 56, 58, 59, 66, and 68. Procedures Date Code Description Status 04/19/2018 10169 Inject/Drain Joint/Bursa Major W/O US Completed 03/07/2018 00155 Destruction Of Benign Lesions Any Method 1-14 lesions Completed 03/07/2018 31340 Destruction ALL Benign Or Premalignant Lesion (Other Completed Than [place] 03/07/2018 52861 Biopsy Skin Lesion Single Completed 01/20/2018 91932 Destruction Of Benign Lesions Any Method 1-14 lesions Completed 12/15/2017 81891 Inject/Drain Joint/Bursa Major W/O US Completed 06/21/2017 [id number] Mammogram Completed 02/28/2017 81676 Destruction Of Benign Lesions Any Method 1-14 lesions Completed 12/24/2016 [id number] Bone Mineral Density Test Completed 06/02/2016 90187674 Mammogram Completed 04/06/2016 [id number] Colonoscopy Completed Encounters Type Date Location Provider Dx Diagnosis Office Visit 06/22/2018 [facility] Internal Ny Wagoner MD J01.90 Acute sinusitis, 2:20p Medicine unspecified Office Visit 05/31/2018 Orthopedic Tess Mcconnell, G56.32 Lesion of radial 10:00a Services Of C.M.[facility]ils[facility] [place] nerve, left upper limb Office Visit 04/27/2018 [facility] Internal Richar Velasco NP F41.9 Anxiety disorder , 1:40p Medicine unspecified F43.21 Adjustment disorder with depressed mood Office Visit 04/25/2018 1:50p [facility] Dermatology Kristy Massey, L57.0 Actinic MD keratosis L72.0 Epidermal cyst Office Visit 04/19/2018 9:15a Orthopedic Emiliana Cifuentes G56.32 Lesion of Services Of Gennaro Jenkins radial nerve, left upper limb W54.0xxD Bitten by dog, subsequent encounter Office Visit 03/07/2018 7:40a [facility] Dermatology Kristy Massey, L82.1 Other seborrheic MD keratosis L82.0 Inflamed seborrheic keratosis L98.9 Disorder of the skin and subcutaneous tissue, unspecified L57.0 Actinic keratosis Office Visit 02/22/2018 8:45a Orthopedic Tess W54.0xxD Bitten by dog, Services Of NEMESIO Mcconnell subsequent C.M.A. encounter M79.632 Pain in left forearm Office Visit 01/25/2018 Orthopedic Emiliana W54.0xxD Bitten by dog, 10:15a Services Of Gregory Cifuentes subsequent C.M.ANilsa encounter G56.32 Lesion of radial nerve, left upper limb Office Visit 01/24/2018 9:00a [facility] Internal Marcus Pachclifford, R51 Headache Medicine - [address] Gregory H43.399 Other vitreous opacities, unspecified eye Office Visit 01/20/2018 10:40a [facility] Dermatology Kristy Massey, L82.1 Other seborrheic MD keratosis D18.01 Hemangioma of skin and subcutaneous tissue L82.0 Inflamed seborrheic keratosis Office Visit 12/15/2017 Orthopedic Emiliana S51.852D Open bite of 2:00p Services Of Gregory Cifuentes left forearm, C.M.A. subsequent encounter M75.42 Impingement syndrome of left shoulder Office Visit 12/05/2017 4:20p [facility] Richar Velasco NP J01.90 Acute sinusitis, Medicine unspecified Office Visit 11/25/2017 10:30a [facility] Eulalia R10.32 Left lower Medicine Marker, RPA-C quadrant pain W54.0xxD Bitten by dog, subsequent encounter F43.21 Adjustment disorder with depressed mood H81.10 Benign paroxysmal vertigo, unspecified ear Office Visit 11/16/2017 10:00a Orthopedic Pato W54.0xxD Bitten by dog, Services Of MD Cammie subsequent C.M.A. encounter S51.852D Open bite of left forearm, subsequent encounter Office Visit 10/21/2017 3:00p [facility] Medicine Eulalia Marker, R30.0 Dysuria RPA-C R10.84 Generalized abdominal pain R05 Cough R68.81 Early satiety R42 Dizziness and giddiness Office Visit 10/03/2017 2:20p [facility] Richar Rod, W54.0xxD Bitten by dog, Medicine WASTE DISPOSAL ATTENDANT subsequent encounter Office Visit 09/19/2017 2:20p [facility] Richar Rod, W54.0xxD Bitten by dog, Medicine WASTE DISPOSAL ATTENDANT subsequent encounter Office Visit 09/05/2017 4:00p [facility] Richarjanee Velasco, S51.812D 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 preprocedural [place] cardiovascular examination H26.9 Unspecified cataract F41.9 Anxiety disorder, unspecified Office Visit 04/26/2017 1:30p Orthopedic Lelepiter Renee, M25.872 Other specified Services Of MD joint disorders, C.M.A. left ankle and foot S93.492D Sprain of other ligament of left ankle, subsequent encounter Office Visit 03/30/2017 1:30p Orthopedic Lelepiter Renee, S93.492A Sprain of other Services Of MD ligament of C.M.A. left ankle, initial encounter M25.872 Other specified joint disorders, left ankle and foot Office Visit 02/28/2017 9:40a [facility] Dermatology Raul Francis, L82.1 Other seborrheic MD keratosis D18.01 Hemangioma of skin and subcutaneous tissue L73.8 Other specified follicular disorders L98.9 Disorder of the skin and subcutaneous tissue, unspecified B35.3 Tinea pedis B35.1 Tinea unguium L82.0 Inflamed seborrheic keratosis L29.8 Other pruritus S30.91xA Unsp superficial injury of lower back and pelvis, init L53.8 Other specified erythematous conditions Z78.9 Other specified health status Office Visit 02/02/2017 2:00p [facility] Ganesh Umana R07.9 Chest pain, Sowmya Phelps M.D. unspecified [place] Office Visit 01/12/2017 8:40a [facility] Liat Man, H81.13 Benign paroxysmal Medicine N.P. vertigo, bilateral Office Visit 12/22/2016 11:20a [facility] Ganesh Umana M54.5 Low back pain Gregory Pope Z13.220 Encounter for screening for lipoid disorders Z13.1 Encounter for screening for diabetes mellitus Z23 Encounter for immunization Z78.0 Asymptomatic menopausal state Z11.59 Encounter for screening for other viral diseases Office Visit 11/29/2016 4:20p [facility] Ganesh Umana M54.5 Low back pain Gregory Pope Office Visit 10/29/2016 4:20p [facility] Richar Velasco NP R05 Cough Medicine Office Visit 05/31/2016 1:00p [facility] Richar Velasco NP F41.9 Anxiety disorder, Medicine unspecified Z12.31 Encntr screen mammogram for malignant neoplasm of breast Plan of Treatment Future Appointment(s):07/16/2019 11:00 am - Richar Velasco NP at [facility] Wglntgxi42/26/2019 10:00 am - Rocky Ross LCSW at [facility] [place]18/18/2019 1:30 pm - Kristy Massey MD at [facility] Amflzncsgzl21/07/2019 10:20 am - Richar Velasco NP at [facility] Yxxvjwqw01/24/2019 - Richar Velasco NPZ00.00 Encounter for general adult medical examination without abnoComments:VACCINES:Flu shot every year in the fall.Your last tetanus vaccine was in 2015. Pneumonia vaccines : You received the Prevnar in 2017. You are due for a pneumovax.Shingles: Shingrix recommended in all people over 50. This is available at pharmacies.SCREENING:Colon cancer: Done in 2017.Mammogram:Just done. Repeat next year. Pap: No longer indicated.Cholesterol and fasting glucose: Yearly.Screening for glaucoma: every 2 years unless otherwise instructed by your eye doctor Bone density (DEXA):Done in 2017. Showed osteopenia. Repeat next year. It is important to try to get 1,200mg of calcium and to take 1,000 units of vitamin D daily as well as do weight bearing exercise such as walking.Follow up:1 yr AWV and PRNF41.9 Anxiety disorder, efarxwguknyQ16.89 Other allergic rhinitisComments:Start using the Flonase two sprays each nostril once daily.You can use the Azelastine if you are having runny nose or nasal congestion.K21.9 Gastro-esophageal reflux disease without esophagitisNew Medication:Ranitidine HCL 150 mg - take 1 tablet by mouth twice a day if neededComments:Lifestyle modification is important in acid reflux. Continue to avoid eating within 3-4 hours of bed, elevate the head of you bed, try to limit caffeine and alcohol, and any foods identified as triggers. Start taking the Ranitidine twice daily for the next two weeks and then as needed.Z23 Encounter for [id number] HeadacheComments:This is likely related to the tension in your neck. Continue with your chiropractor. You can consider attending physical therapy also.
[2018-08-01] MEDS ORDERED: Diazepam TAB(*) 5 MG PO ONE (22:28)
--- NOTE | 2018-08-01 23:13 | ED ---
Headache - HPI Summary HPI Summary: Patient complains of occipital headache and fatigue starting 07/29/18. Patient sent from [facility] to ED for further evaluation. Patient states headache worse when lying down. Patient states headache not responsive to Tylenol. Denies fever, vision change, cough, sore throat, ear pain, as neck stiffness, CP, SOB, N/V/D, abdominal pain, change in urine, change in BM. Denies prior history of headaches. Medical history is none. - History Of Current Complaint Chief Complaint: EDHeadache Stated Complaint: HEAD MRI, SENT FROM [facility] NOW PER PT Time Seen by Provider: 08/01/18 22:11 Hx Obtained From: Patient Onset/Duration: Gradual Onset, Started days ago Initially Headache Was: Moderate Currently Pain Is: Moderate Timing: Intermittent, Lasting: Character: Throbbing Aggravating Factor: Position Change Allevating Factors: Nothing Associated Signs And Symptoms: Negative - Allergies/Home Medications Allergies/Adverse Reactions: Allergies Allergy/AdvReac Type Severity Reaction Status Date / Time Sulfa (Sulfonamide Allergy Intermediate Rash Verified 06/15/17 06:33 Antibiotics) PERFUMES AND FRAGRANCES Allergy Severe COUGH, Uncoded 06/15/17 06:33 EYES BURNING, TUNNEL VISION Home Medications: Home Medications Atorvastatin* [Lipitor*] 20 mg PO DAILY 08/01/18 [History Confirmed 08/01/18] Azelastine 0.15% NASAL(NF) [Astepro 0.15% NASAL (NF)] 1 spray NASAL BID [History Confirmed 08/01/18] PMH/Surg Hx/FS Hx/Imm Hx Endocrine/Hematology History: Denies: Hx Anticoagulant Therapy Cardiovascular History: Denies: Hx Myocardial Infarction Respiratory History: Comment Only: Hx Asthma - ALLERGIES SENSITIVITIES TO CHEMICALS PERFUMES GI History: Reports: Other GI Disorders - diverticulosis History: Denies: Hx Dialysis Musculoskeletal History: Reports: Hx Arthritis - mild, Hx Scoliosis Denies: Hx Osteoporosis Sensory History: Reports: Hx Cataracts - both, Hx Contacts or Glasses - glasses , Hx Hearing Aid - both ears Opthamlomology History: Reports: Hx Cataracts - both, Hx Contacts or Glasses - glasses Neurological History: Denies: Hx Dementia Psychiatric History: Reports: Hx Anxiety, Hx Depression - MILD IN PAST Denies: Hx Eating Disorder, Hx of Violent Episodes Against Others - Surgical History Surgery Procedure, Year, and Place: COCCYXectomy REMOVED. tonsillectomy as a kid. appendectomy Hx Anesthesia Reactions: No - Immunization History Date of Tetanus Vaccine: unk Infectious Disease History: No Infectious Disease History: Denies: Traveled Outside the [place] in Last 30 Days - Family History Known Family History: Positive: Hypertension - Social History Alcohol Use: Weekly Substance Use Type: Reports: None Smoking Status (MU): Former Smoker Amount Used/How Often: smoked off and on 5 years 03/22 ppd Review of Systems Constitutional: Negative Eyes: Negative ENT: Negative Cardiovascular: Negative Respiratory: Negative Gastrointestinal: Negative Genitourinary: Negative Musculoskeletal: Negative Skin: Negative Positive: Headache Psychological: Normal All Other Systems Reviewed And Are Negative: Yes Physical Exam - Summary Physical Exam Summary: Neuro exam normal. Tenderness to palpation along bilateral sternocleidomastoid muscles. Neck has full range of motion. Triage Information Reviewed: Yes Vital Signs On Initial Exam: Initial Vitals Temp Pulse Resp BP Pulse Ox 97.4 F 60 16 139/90 98 08/01/18 20:20 08/01/18 20:20 08/01/18 20:20 08/01/18 20:20 08/01/18 20:20 Vital Signs Reviewed: Yes Appearance: Positive: Well-Appearing Skin: Positive: Warm Head/Face: Positive: Normal Head/Face Inspection Eyes: Positive: Normal ENT: Positive: Normal ENT inspection Neck: Positive: Supple Respiratory/Lung Sounds: Positive: Clear to Auscultation Cardiovascular: Positive: Normal Abdomen Description: Positive: Nontender Musculoskeletal: Positive: Normal Neurological: Positive: Normal Psychiatric: Positive: Normal AVPU Assessment: Alert - Shaw Coma Scale Best Eye Response: 4 - Spontaneous Best Motor Response: 6 - Obeys Commands Best Verbal Response: 5 - Oriented Coma Scale Total: 15 Diagnostics - Vital Signs Vital Signs Temp Pulse Resp BP Pulse Ox 08/01/18 22:51 18 08/01/18 22:11 63 149/71 97 08/01/18 22:10 64 98 08/01/18 20:20 97.4 F 60 16 139/90 98 - Laboratory Lab Statement: Any lab studies that have been ordered have been reviewed, and results considered in the medical decision making process. Headache Course/Dx - Course Course Of Treatment: Patient complains of occipital headache and fatigue starting 07/29/18. Patient sent from to ED for further evaluation. Patient states headache worse when lying down. Patient states headache not responsive to Tylenol. Denies fever, vision change, cough, sore throat, ear pain, as neck stiffness, CP, SOB, N/V/D, abdominal pain, change in urine, change in BM. Denies prior history of headaches. Medical history is none. Physical exam: Neuro exam normal. Tenderness to palpation along bilateral sternocleidomastoid muscles. Neck has full range of motion. Vital signs within normal limits. CT brain negative. Patient symptoms improved with Valium 5 mg by mouth. Rx for same. Patient also started Lipitor 2 weeks ago, headache possible reaction to Lipitor. Advised to follow-up with primary care. Patient understands and improves with plan. - Diagnoses Provider Diagnoses: Headache Discharge - Sign-Out/Discharge Documenting (check all that apply): Patient Departure Patient Received Moderate/Deep Sedation with Procedure: No - Discharge Plan Condition: Stable Disposition: HOME Prescriptions: Diazepam TAB(*) [Valium TAB(*)] 5 mg PO TID PRN 2 Days #5 tab MDD 3 TABS PRN Reason: Pain Patient Education Materials: Acute Headache (ED), Muscle Spasm (ED) Referrals: Laurel Rosas MD [Primary Care Provider] - Additional Instructions: Follow-up with primary care for possible headache reaction to Lipitor. Return to the ED for any new or worsening symptoms. - Billing Disposition and Condition Condition: STABLE Disposition: Home
[2018-08-01 23:23] VITALS: BP 140/72
== END 2018-08-01 23:20 | disposition home or self-care (01) ==
LOC: ED 19:59
DX: R51 Headache (principal); K57.90 Diverticulosis of intestine, part unspecified, without perforation or abscess without bleeding; J45.909 Unspecified asthma, uncomplicated; M41.9 Scoliosis, unspecified; F41.9 Anxiety disorder, unspecified; Z88.2 Allergy status to sulfonamides; Z79.899 Other long term (current) drug therapy; Z87.891 Personal history of nicotine dependence
CPT/HCPCS: 70450; 99283; A9270-GY

== ENCOUNTER 2019-01-23 09:56 | Emergency (ER) | payer MEDICARE ==
[2019-01-23 10:05] VITALS: BP 134/66
--- NOTE | 2019-01-23 11:48 | UC ---
Lower Extremity/Ankle HPI - HPI Summary HPI Summary: 68 year old female with no PMH presents after twisting ankle last night. Right ankle, mild swelling, no bruising noted. No prior injuries, surgeries to ankle. + ambualtory with mild pain. - History of Current Complaint Chief Complaint: UCLowerExtremity Stated Complaint: ANKLE INJURY Time Seen by Provider: 01/23/19 10:55 Hx Obtained From: Patient ?: No Onset/Duration: Sudden Onset, Lasting Hours Severity Initially: Moderate Severity Currently: Moderate Pain Intensity: 8 Pain Scale Used: 0-10 Numeric Aggravating Factor(s): Standing, Ambulation Alleviating Factor(s): Rest Able to Bear Weight: Yes - Allergies/Home Medications Allergies/Adverse Reactions: Allergies Allergy/AdvReac Type Severity Reaction Status Date / Time Sulfa (Sulfonamide Allergy Intermediate Rash Verified 01/23/19 10:05 Antibiotics) PERFUMES AND FRAGRANCES Allergy Severe COUGH, Uncoded 01/23/19 10:05 EYES BURNING, TUNNEL VISION PMH/Surg Hx/FS Hx/Imm Hx Previously Healthy: Yes Other History Of: Negative For: Anticoagulant Therapy - Surgical History Surgical History: Yes Surgery Procedure, Year, and Place: COCCYXectomy REMOVED. tonsillectomy as a kid. appendectomy - Family History Known Family History: Positive: Hypertension - Social History Alcohol Use: Weekly Substance Use Type: None Smoking Status (MU): Former Smoker Amount Used/How Often: smoked off and on 5 years 1/2 ppd When Did the Patient Quit Smoking/Using Tobacco: 20 years ago Review of Systems All Other Systems Reviewed And Are Negative: Yes Constitutional: Positive: Negative Musculoskeletal: Positive: Arthralgia, Decreased ROM, Myalgia Is Patient Immunocompromised?: No Physical Exam Triage Information Reviewed: Yes Appearance: Well-Appearing, No Pain Distress, Well-Nourished Vital Signs: Initial Vital Signs Temp 98 F 01/23/19 10:01 Pulse 65 01/23/19 10:01 Resp 16 01/23/19 10:01 BP 134/66 01/23/19 10:01 Pulse Ox 98 01/23/19 10:01 Vital Signs Reviewed: Yes Eyes: Positive: Conjunctiva Clear ENT: Positive: Hearing grossly normal Musculoskeletal: Positive: Other: - RIght ankle- neg drawer, neg squeeze test, + ttp over lateral mal, none over medial mal, minimal edema noted lateral mal, + TTP over AFTL. achillies intact, full PROM of ankle with minimal pain with PF/ DF. full movement of all toes. Neurological Exam: Normal Neurological: Positive: Alert, Muscle Tone Normal, Other: - SITLT distal to right knee Psychological Exam: Normal Skin Exam: Normal Skin: Positive: Other - no open wounds, sores Lower Extremity Course/Dx - Course Course Of Treatment: Right ankle sprain: - Keep splint on at all times while up, moving for next 5-7 days to prevent re- injury - May remove if feeling well, wear only when walking on uneven ground, hiking for next 2-3 weeks - Naproxen for pain for next 2-3 days to decrease inflammation - Increase fluid intake Radiograph: negative for fx. - Differential Dx/Diagnosis Provider Diagnosis: Right ankle sprain Discharge ED - Sign-Out/Discharge Documenting (check all that apply): Patient Departure All imaging exams completed and their final reports reviewed: Yes - Discharge Plan Condition: Good Disposition: HOME Prescriptions: Naproxen [Naproxen 250 mg tab] 250 mg PO BID #30 tablet Patient Education Materials: Ankle Sprain (ED), Ankle Stirrup Splint (ED) Referrals: Richar Velasco, NURSERY HELPER [Primary Care Provider] - Additional Instructions: - Keep splint on at all times while up, moving for next 5-7 days to prevent re- injury - May remove if feeling well, wear only when walking on uneven ground, hiking for next 2-3 weeks - Naproxen for pain for next 2-3 days to decrease inflammation - Increase fluid intake - Billing Disposition and Condition Condition: GOOD Disposition: Home
--- NOTE | 2019-01-24 10:27 | UC ---
- Progress Note Progress Note: RADIOLOGY REPORT REVIEWED. SOFT TISSUE SWELLING. NO FRACTURE SEEN. NO CHANGE IN MANAGEMENT. Course/Dx - Diagnoses Provider Diagnoses: Right ankle sprain Discharge ED - Sign-Out/Discharge Documenting (check all that apply): Post-Discharge Follow Up All imaging exams completed and their final reports reviewed: Yes - Discharge Plan Condition: Good Disposition: HOME Prescriptions: Naproxen [Naproxen 250 mg tab] 250 mg PO BID #30 tablet Patient Education Materials: Ankle Sprain (ED), Ankle Stirrup Splint (ED) Referrals: Richar Velasco SALES ASSOCIATE CASHIER [Primary Care Provider] - Additional Instructions: - Keep splint on at all times while up, moving for next 5-7 days to prevent re- injury - May remove if feeling well, wear only when walking on uneven ground, hiking for next 2-3 weeks - Naproxen for pain for next 2-3 days to decrease inflammation - Increase fluid intake - Billing Disposition and Condition Condition: GOOD Disposition: Home
== END 2019-01-23 11:53 | disposition home or self-care (01) ==
LOC: UCEAST 09:56
DX: S93.401A Sprain of unspecified ligament of right ankle, initial encounter (principal); X50.1XXA Overexertion from prolonged static or awkward postures, initial encounter; Y92.9 Unspecified place or not applicable; Z88.2 Allergy status to sulfonamides; Z91.09 Other allergy status, other than to drugs and biological substances; Z87.891 Personal history of nicotine dependence
CPT/HCPCS: 99211; G0463

== ENCOUNTER 2019-05-06 11:02 | Emergency (ER) | payer MEDICARE ==
--- OUTSIDE RECORDS SUMMARY | 2019-05-06 11:09 | XMS REPORT | Continuity of Care Document ---
:1950 External Reference #:[id number] Author Name Richar Velasco NP (transmitted by agent of provider Lizett Alegre) Address [address] [facility], [address] [place] [id number] Care Team Providers Name Role Phone Lobo Haines MD - Ophthalmology Care Team Information Industrial Ecology Technician Laurel Rosas MD - Internal Care Team Information Industrial Ecology Technician Medicine Problems Active Problems Provider Date Anxiety state Richar Velasco NP Onset: 06/02/2016 Sprain of ankle Lele Renee MD Onset: 03/30/2017 Disorder of joint of ankle and/or foot Lele Renee MD Onset: 03/30/2017 Social History Type Date Description Comments Sex Unknown ETOH Use Currently consumes 5 drinks/week alcohol Tobacco Use Start: Unknown End: Patient is a former 10 cigarettes daily Unknown smoker for 5 yrs, then for a few months during divorce. Quit in her 40s Smoking Status Reviewed: 03/12/19 Patient is a former 10 cigarettes daily smoker for 5 yrs, then for a few months during divorce. Quit in her 40s Exercise Exercises sporadically Type/Frequency Allergies, Adverse Reactions, Alerts Active Allergies Reaction Severity Comments Date Sulfa Antibiotics Urticaria 05/31/2016 Medications Active Medications SIG Qnty Indications Ordering Date Provider Diclofenac Sodium apply 2 grams to 200gm M46.1 Richar Velasco NP 03/12/2019 1% affected area Gel twice daily Atorvastatin Calcium take 1 tablet at 90tabs Richar Velasco NP 02/25/2019 bedtime 20mg Tablets Ranitidine HCL take 1 tablet by 60tabs K21.9 Richar Velasco NP 07/12/2018 150mg mouth twice a day Tablets if needed Fluticasone 2 sprays each 16units J01.90 Richar Velasco NP 12/05/2017 Propionate nostril qd. 50mcg/Act Suspension Azelastine HCL 1 spray in each 30ml Richar Velasco NP 10/21/2017 (Nasal) nostril 2x/day. 0.1% Solution Alprazolam one by mouth once 30tabs F41.9 Richar Velasco NP 05/31/2016 0.25mg daily as needed Tablets Fish Oil Twice a day Unknown 1200mg Capsules Preservision Areds 2 Twice a day Unknown Areds 2 Capsules Centrum Silver Once a day Unknown 50+Women 50+Women Tablets Erythromycin as needed Lobo Haines, 5mg/GM Ointment Ketoconazole Twice a day Kiah, 2% Cream Elton, DPM Calcium 1200+D3 Once a day Unknown Tablets ER 24HR Medications Administered in Office Medication SIG Qnty Indications Ordering Provider Date Depomedrol 40MG Emiliana Cifuentes M.D. 04/19/2018 Injection Depomedrol 40MG Emiliana Cifuentes M.D. 12/15/2017 Injection Immunizations CPT Code Status Date Vaccine Reaction Lot # [id number] Given 03/01/2019 Influenza Virus Vaccine, No immediate reaction [id number] Quadrivalent ([id number]), Derived From Cell 13555 Given 07/12/2018 Pneumonia Vaccine No reaction seen - no [id number] immediate side effects - patient tolerated well 95167 Given 12/22/2016 Pneumococcal Conjugate [id number] Vaccine 13 Valent For Intramuscular Use 26151 Given 06/20/2015 Tdap - Tetanus/Diptheria/Acellular Pertussis Vital Signs Date Vital Result Comment 03/12/2019 3:48pm Height 67 inches 5'7" Weight 174.38 lb Heart Rate 73 /min BP Systolic 120 mmHg BP Diastolic 60 mmHg Body Temperature 98.0 F O2 % BldC Oximetry 99 % BMI (Body Mass Index) 27.3 kg/m2 03/01/2019 3:57pm Height 67 inches 5'7" Weight 173.38 lb Heart Rate 63 /min BP Systolic 133 mmHg BP Diastolic 75 mmHg Body Temperature 98.8 F O2 % BldC Oximetry 97 % BMI (Body Mass Index) 27.2 kg/m2 Results Test Acquired Date Facility Test Result H/L Range Note Lipid Profile 02/22/2019 [facility] Triglycerides 140 mg/dL 1 (Trig/Chol/HDL) [address] [place], [place] [id number] [phone] Cholesterol 283 mg/dL 2 HDL Cholesterol 75.3 mg/dL 3 LDL Cholesterol 180 mg/dL 4 Lipid Profile 10/18/2018 [facility] Triglycerides 84 mg/dL 5 (Trig/Chol/HDL) [address] [place], [place] [id number] [phone] Cholesterol 135 mg/dL 6 HDL Cholesterol 59.7 mg/dL 7 LDL Cholesterol 59 mg/dL 8 Liver Function 10/18/2018 [facility] Total Protein 6.4 g/dL Normal 6.4-8.9 Panel [address] [place] [address] [phone] Albumin 4.6 g/dL Normal 3.2-5.2 Globulin 1.8 g/dL Low 2-4 Albumin/Globulin Ratio 2.6 Normal 1-3 Total Bilirubin 1.20 mg/dL High 0.2-1.0 Direct Bilirubin 0.20 mg/dL High 0.03-0.18 Indirect Bilirubin 1.0 mg/dL Normal 0.3-1.0 Alkaline Phosphatase 71 U/L Normal 34-104 Alt 22 U/L Normal 7-52 Ast 29 U/L Normal 13-39 1 Desirable: <150 Borderline High: 150-199 High: 200-499 Very High: >500 2 Desirable: <200 Borderline High: 200-239 High: >239 3 Low: <40 Desirable: 40-60 High: >60 4 Desirable: <100 Near Optimal: 100-129 Borderline High: 130-159 High: 160-189 Very High: >189 5 Desirable: <150 Borderline High: 150-199 High: 200-499 Very High: >500 6 Desirable: <200 Borderline High: 200-239 High: >239 7 Low: <40 Desirable: 40-60 High: >60 8 Desirable: <100 Near Optimal: 100-129 Borderline High: 130-159 High: 160-189 Very High: >189 Procedures Date Code Description Status 03/07/2019 46620 Destruction Of Benign Lesions Any Method 1-14 lesions Completed 06/21/2017 86706365 Mammogram Completed 12/24/2016 [id number] Bone Mineral Density Test Completed 06/02/2016 62414863 Mammogram Completed 04/06/2016 [id number] Colonoscopy Completed Medical Devices Description No Information Available Encounters Type Date Location Provider Dx Diagnosis Office Visit 03/07/2019 [facility] Kristy Massey, D22.5 Melanocytic nevi of 1:30p MD trunk L82.1 Other seborrheic keratosis B07.8 Other viral warts L53.8 Other specified erythematous conditions Office Visit 03/01/2019 3:40p [facility] Richar Rod, E78.5 Hyperlipidemia, Medicine - [facility] unspecified [facility] R05 Cough Z23 Encounter for immunization Office Visit 10/25/2018 10:20a [facility] Richar Rod, E78.5 Hyperlipidemia, Medicine - [facility] unspecified [facility] F41.9 Anxiety disorder, unspecified M79.632 Pain in left forearm Office Visit 09/20/2018 3:00p [facility] Emiliana Cifuentes, G56.32 Lesion of at Onesimo Jenkins radial nerve, left upper limb Assessments Date Code Description Provider 03/12/2019 M46.1 Sacroiliitis, not elsewhere classified Richar Rod, [facility] [employer] [employer] 03/12/2019 M70.62 Trochanteric bursitis, left hip Richar Rod, [employer] 03/12/2019 M54.5 Low back pain Richar Rod, [employer] 03/07/2019 D22.5 Melanocytic nevi of trunk Kristy Massey MD 03/07/2019 L82.1 Other seborrheic keratosis Kristy Massey MD 03/07/2019 B07.8 Other viral warts Kristy Massey MD 03/07/2019 L53.8 Other specified erythematous conditions Kristy Massey MD 03/01/2019 E78.5 Hyperlipidemia, unspecified Richar Rod, [employer] 03/01/2019 R05 Cough Richar Rod, [employer] 03/01/2019 Z23 Encounter for immunization Richar Rod, [employer] 10/25/2018 E78.5 Hyperlipidemia, unspecified Richar Rod, [employer] 10/25/2018 F41.9 Anxiety disorder, unspecified Richar Rod, [employer] 10/25/2018 M79.632 Pain in left forearm Richar Rod, [employer] 09/20/2018 G56.32 Lesion of radial nerve, left upper limb Emiliana Cifuentes M.D. Plan of Treatment Future Appointment(s):03/11/2020 1:45 pm - Kristy Massey MD at [facility]03/27/2020 11:00 am - Richar Velasco NP at [facility] - [facility]03/12/2019 - Richar Velasco NPM46.1 Sacroiliitis, not elsewhere classifiedNew Medication:Diclofenac Sodium 1 % - apply 2 grams to affected area twice dailyNew Therapy:Physical TherapyComments:For the pain you are having in your lower back I recommend using heat to the area for 20 minutes every few hours and rest for a few days.You can continue taking the naprosyn for several days. I am referring you to Physical therapy today. TIf after several weeks of PT your pain has not subsided call the office and we will explore further options.M70.62 Trochanteric bursitis, left hipNew Therapy:Physical TherapyComments:I recommend applying ice to the area for 20 minutes every few hours.M54.5 Low back painNew Therapy:Physical Therapy Functional Status Description No Information Available Mental Status Description No Information Available Referrals Refer to Reason for Referral Status Appt Date Dinah Seymour M.D. Sent [address] [place], [place] [id number] [phone]
[2019-05-06 11:13] VITALS: BP 132/72
--- NOTE | 2019-05-06 12:09 | UC ---
Lower Extremity/Ankle HPI - HPI Summary HPI Summary: patient was getting ready to sit for breakfast 2-3 hours ago and stubbed toe on chair, had immediate pain and still persists - History of Current Complaint Chief Complaint: UCLowerExtremity Stated Complaint: TOE INJURY Time Seen by Provider: 05/06/19 11:56 Hx Obtained From: Patient Onset/Duration: Sudden Onset Severity Initially: Severe Severity Currently: Moderate Pain Intensity: 8 Aggravating Factor(s): Standing, Ambulation Alleviating Factor(s): Rest Able to Bear Weight: Yes - Allergies/Home Medications Allergies/Adverse Reactions: Allergies Allergy/AdvReac Type Severity Reaction Status Date / Time Sulfa (Sulfonamide Allergy Intermediate Rash Verified 05/06/19 11:13 Antibiotics) PERFUMES AND FRAGRANCES Allergy Severe COUGH, Uncoded 05/06/19 11:13 EYES BURNING, TUNNEL VISION PMH/Surg Hx/FS Hx/Imm Hx Previously Healthy: Yes Endocrine History: Dyslipidemia Psychological History: Anxiety Other History Of: Negative For: Anticoagulant Therapy - Surgical History Surgical History: Yes Surgery Procedure, Year, and Place: COCCYXectomy REMOVED. tonsillectomy as a kid. appendectomy - Family History Known Family History: Positive: Hypertension - Social History Occupation: Retired Lives: With Family Alcohol Use: Occasionally Substance Use Type: None Smoking Status (MU): Former Smoker Amount Used/How Often: smoked off and on 5 years / ppd When Did the Patient Quit Smoking/Using Tobacco: 20 years ago Review of Systems All Other Systems Reviewed And Are Negative: Yes Constitutional: Positive: Negative Skin: Positive: Negative Respiratory: Positive: Negative Cardiovascular: Positive: Negative Musculoskeletal: Positive: Other: - L 5th toe pain Psychological: Positive: Negative Is Patient Immunocompromised?: No Physical Exam Triage Information Reviewed: Yes Appearance: Well-Appearing, No Pain Distress, Well-Nourished Vital Signs: Initial Vital Signs Temp 97.4 F 05/06/19 11:10 Pulse 62 05/06/19 11:10 Resp 16 05/06/19 11:10 BP 132/72 05/06/19 11:10 Pulse Ox 100 05/06/19 11:10 Vital Signs Reviewed: Yes Respiratory Exam: Normal Respiratory: Positive: Lungs clear Cardiovascular Exam: Normal Cardiovascular: Positive: RRR Musculoskeletal: Positive: Strength Intact, ROM Intact, Other: - pain L 5th toe , slightly swollen Neurological Exam: Normal Psychological Exam: Normal Skin Exam: Normal Lower Extremity Course/Dx - Differential Dx/Diagnosis Differential Diagnosis/HQI/PQRI: Contusion, Dislocation, Fracture (Closed) Provider Diagnosis: Contusion, toe Discharge ED - Sign-Out/Discharge Documenting (check all that apply): Patient Departure All imaging exams completed and their final reports reviewed: Yes - Discharge Plan Condition: Good Disposition: HOME Patient Education Materials: Foot Contusion (ED) Referrals: Richar Velasco COTTON PROGRAM TECHNICIAN [Primary Care Provider] - 3 Days (if no better) Additional Instructions: ice and elevate foot use ibuprofen or Tylenol for pain as directed - Billing Disposition and Condition Condition: GOOD Disposition: Home
== END 2019-05-06 12:51 | disposition home or self-care (01) ==
LOC: UCEAST 11:02
DX: S90.122A Contusion of left lesser toe(s) without damage to nail, initial encounter (principal); Z87.891 Personal history of nicotine dependence; Z88.2 Allergy status to sulfonamides; Z91.09 Other allergy status, other than to drugs and biological substances; X58.XXXA Exposure to other specified factors, initial encounter; Y92.9 Unspecified place or not applicable
CPT/HCPCS: 99211; G0463

== ENCOUNTER 2019-12-28 00:24 | Inpatient (IN) ==
[2019-12-28 02:06] LABS: ABS Basophils 0.1 10^3/ul (0-0.2); ABS Eosinophils 0.2 10^3/ul (0-0.6); ABS Lymphocytes 1.7 10^3/ul (1.0-4.8); ABS Monocytes 0.5 10^3/ul (0-0.8); ABS Neutrophils 8.6 10^3/ul (1.5-7.7); Eosinophil % 1.5 %; Hematocrit 42 % (35-47); Hemoglobin 13.9 g/dL (12.0-16.0); Lymphocyte % 15.2 %; Mean Corpuscular HGB Conc 33 g/dL (31-36); Mean Corpuscular Hemoglobin 30 pg (27-31); Mean Corpuscular Volume 90 fL (80-97); Mean Platelet Volume 8.5 fL (7.4-10.4); Platelet Count 219 10^3/uL (150-450); Red Cell Distribution Width 13 % (10-15)
[2019-12-28 02:15] LABS: Urine Appearance Clear; Urine Bilirubin Negative (Negative); Urine Blood Negative (Negative); Urine Color Yellow; Urine Glucose Negative (Negative); Urine Ketones Trace (Negative); Urine Nitrite Negative (Negative); Urine Protein Negative (Negative); Urine Specific Gravity 1.014 (1.010-1.030); Urine Urobilinogen Negative (Negative)
[2019-12-28 02:31] LABS: Albumin/Globulin Ratio 2.2 (1-3); BUN/Creatinine Ratio 13.3 (8-20); C Reactive Protein 1.36 mg/L (<8.01); Calcium 10.4 mg/dL (8.6-10.3); EGFR African American 75.1 (>60); EGFR Non-African American 62.1 (>60); Globulin 2.3 g/dL (2-4); Potassium 3.8 mmol/L (3.5-5.0); Total Bilirubin 1.2 mg/dL (0.2-1.0); Total Protein 7.3 g/dL (6.4-8.9)
[2019-12-28] MEDS ORDERED: Iohexol 300 (CONTRAST) 10 ML SDV IV ONE (03:12)
[2019-12-28] MEDS ORDERED: Morphine 4 MG/ML VIAL (1 ml) IV ONE (05:05)
[2019-12-28] MEDS: Heparin 5000 UNITS/ML 1 mL VIAL SUBCUT SCH ×3 (09:47→21:49)
[2019-12-28] MEDS: NS 0.9% w/ 20 Meq KCL 1000 ml 1,000 ML IV SCH ×2 (09:52→20:18)
[2019-12-28] MEDS: Ondansetron 4 mg VIAL 2 MG/ML 2 ml VIAL IV PRN (20:17)
[2019-12-28] MEDS ORDERED: Mometasone 220 MCG MDI INH SCH (21:00)
[2019-12-28] MEDS: Polyethylene Glycol 3350 17 GM PACKET PO SCH (21:49)
[2019-12-29] MEDS: Budesonide Flexhaler 90 (NF) 90 MCG/ACT MDI INH SCH ×2 (01:58→09:27)
[2019-12-29] MEDS: Heparin 5000 UNITS/ML 1 mL VIAL SUBCUT SCH ×2 (04:16→13:19)
[2019-12-29] MEDS: NS 0.9% w/ 20 Meq KCL 1000 ml 1,000 ML IV SCH ×3 (04:30→23:16)
[2019-12-29] MEDS: Polyethylene Glycol 3350 17 GM PACKET PO SCH (07:23)
[2019-12-29] MEDS ORDERED: Midazolam 10 mg/10 ml VIAL 1 mg/ml 10 ml VIAL (10 mg) ONE (08:56)
[2019-12-29] MEDS ORDERED: fentaNYL 100 mcg/2 ml 50 MCG/ML VIAL ONE (08:56)
[2019-12-29 11:29] LABS: ABS Eosinophils 0.2 10^3/ul (0-0.6); ABS Lymphocytes 1.6 10^3/ul (1.0-4.8); ABS Monocytes 0.3 10^3/ul (0-0.8); ABS Neutrophils 2.7 10^3/ul (1.5-7.7); Eosinophil % 4.6 %; Hematocrit 38 % (35-47); Hemoglobin 12.6 g/dL (12.0-16.0); Lymphocyte % 32.8 %; Mean Corpuscular HGB Conc 33 g/dL (31-36); Mean Corpuscular Hemoglobin 30 pg (27-31); Mean Corpuscular Volume 91 fL (80-97); Mean Platelet Volume 8.4 fL (7.4-10.4); Nucleated Red Blood Cells % 0.1; Platelet Count 177 10^3/uL (150-450); Red Blood Count 4.24 10^6 /uL (3.70-4.87); Red Cell Distribution Width 13 % (10-15)
[2019-12-29 11:48] LABS: BUN/Creatinine Ratio 9.1 (8-20); Calcium 9.4 mg/dL (8.6-10.3); EGFR African American 89.9 (>60); EGFR Non-African American 74.3 (>60); Potassium 4.2 mmol/L (3.5-5.0)
[2019-12-29] MEDS: Enoxaparin 40 MG/0.4 ML SYR SUBCUT SCH (14:14)
[2019-12-30] MEDS: Budesonide Flexhaler 90 (NF) 90 MCG/ACT MDI INH SCH ×2 (00:20→07:29)
[2019-12-30] MEDS: Ondansetron 4 mg VIAL 2 MG/ML 2 ml VIAL IV PRN (01:07)
[2019-12-30] MEDS: NS 0.9% w/ 20 Meq KCL 1000 ml 1,000 ML IV SCH (07:29)
[2019-12-30] MEDS: Polyethylene Glycol 3350 17 GM PACKET PO SCH (07:36)
[2019-12-30 11:56] VITALS: BP 129/72
[2019-12-30 12:15] LABS: TSH Ultra Thyroid Stim Horm 5.79 mcIU/mL (0.34-5.60)
[2019-12-30] MEDS: Enoxaparin 40 MG/0.4 ML SYR SUBCUT SCH (12:39)
[2019-12-30] MEDS ORDERED: Magnesium Hydroxide LIQ 30 ML UDC PO STA (12:40)
[2019-12-30] MEDS ORDERED: Magnesium Hydroxide LIQ 30 ML UDC PO ONE (14:51)
== END 2019-12-30 15:30 | disposition home or self-care (01) | DRG 392 ==
LOC: ED 00:24 → MED 07:29
PROVIDERS: ADMIT Internal Medicine; ATTEND Internal Medicine